=== PATIENT | male | born 1985 | race African-American/Black ===

== ENCOUNTER 2021-05-18 16:50 | Inpatient (IN) ==
[2021-05-18 18:50] LABS: Urine Appearance Clear; Urine Bilirubin Negative (Negative); Urine Blood 1+ (Negative); Urine Color Amber; Urine Glucose Negative (Negative); Urine Ketones Negative (Negative); Urine Nitrite Negative (Negative); Urine Protein Negative (Negative); Urine Specific Gravity 1.012 (1.002-1.030); Urine Urobilinogen Negative (Negative)
[2021-05-18 18:54] LABS: Urine Bacteria Absent (Absent); Urine Red Blood Cell Trace(0-2/hpf) (Absent); Urine Squamous Epithelial Cell Present (Absent); Urine White Blood Cell Trace(0-5/hpf) (Absent)
[2021-05-18 22:48] LABS: ABS Basophils 0.1 10^3/ul (0-0.2); ABS Eosinophils 0.2 10^3/ul (0-0.6); ABS Lymphocytes 2.9 10^3/ul (1.0-4.8); ABS Monocytes 1.2 10^3/ul (0-0.8); ABS Neutrophils 5.8 10^3/ul (1.5-7.7); ABS Nucleated RBC 0.2 10^3/ul; Hematocrit 16 % (42-52); Hemoglobin 5.8 g/dL (14.0-18.0); Mean Corpuscular HGB Conc 36 g/dL (31-36); Mean Corpuscular Hemoglobin 34 pg (27-31); Mean Corpuscular Volume 95 fL (80-94); Mean Platelet Volume 7.1 fL (7.4-10.4); Nucleated Red Blood Cells % 2.3; Platelet Count 432 10^3/uL (150-450); Red Blood Count 1.71 10^6 /uL (4.18-5.48); Red Cell Distribution Width 24 % (10-15); White Blood Count 10.2 10^3/uL (3.5-10.8)
[2021-05-18 22:58] LABS: Albumin 3.7 g/dL (3.2-5.2); Albumin/Globulin Ratio 1.4 (1-3); C Reactive Protein 85.27 mg/L (<8.01); Calcium 8.6 mg/dL (8.6-10.3); Globulin 2.7 g/dL (2-4); Potassium 3.9 mmol/L (3.5-5.0); Total Bilirubin 4.8 mg/dL (0.2-1.0); Total Protein 6.4 g/dL (6.4-8.9); eGFR CKD-EPI 123.1 (>60)
[2021-05-18 23:25] LABS: Polychromasia 2+; Sickle Cells 2+
[2021-05-19] MEDS ORDERED: Ondansetron 4 mg VIAL 2 MG/ML 2 ml VIAL IV ONE (00:07)
[2021-05-19] MEDS ORDERED: Morphine 4 MG/ML VIAL (1 ml) IV ONE (00:07)
[2021-05-19 00:38] LABS: Activated Partial Thrombo Time 26.3 seconds (26.0-38.0); INR 1.24 (0.86-1.15)
[2021-05-19 00:47] LABS: Rapid COVID-19 Molecular Undetected (Undetected)
[2021-05-19 02:16] LABS: Direct Bilirubin 0.7 mg/dL (0.03-0.18)
[2021-05-19] MEDS: Heparin 5000 UNITS/ML 1 mL VIAL SUBCUT SCH ×3 (06:26→21:35)
[2021-05-19] MEDS: HYDROcodone/ACETAMIN 5/325 mg TAB PO PRN ×2 (08:25→14:23)
[2021-05-20] MEDS: HYDROcodone/ACETAMIN 5/325 mg TAB PO PRN (06:10)
[2021-05-20] MEDS: Heparin 5000 UNITS/ML 1 mL VIAL SUBCUT SCH ×2 (06:10→14:34)
[2021-05-20 06:23] LABS: ABS Basophils 0.1 10^3/ul (0-0.2); ABS Eosinophils 0.2 10^3/ul (0-0.6); ABS Lymphocytes 2.8 10^3/ul (1.0-4.8); ABS Monocytes 0.9 10^3/ul (0-0.8); ABS Nucleated RBC 0.3 10^3/ul; Eosinophil % 2.2 %; Hematocrit 22 % (42-52); Hemoglobin 7.6 g/dL (14.0-18.0); Mean Corpuscular HGB Conc 36 g/dL (31-36); Mean Corpuscular Hemoglobin 33 pg (27-31); Mean Corpuscular Volume 94 fL (80-94); Mean Platelet Volume 7.2 fL (7.4-10.4); Nucleated Red Blood Cells % 3.5; Platelet Count 440 10^3/uL (150-450); Red Cell Distribution Width 20 % (10-15); White Blood Count 8.9 10^3/uL (3.5-10.8)
[2021-05-20 06:55] LABS: Albumin 3.5 g/dL (3.2-5.2); Albumin/Globulin Ratio 1.3 (1-3); Calcium 8.4 mg/dL (8.6-10.3); Globulin 2.7 g/dL (2-4); Potassium 4.2 mmol/L (3.5-5.0); Total Bilirubin 3.6 mg/dL (0.2-1.0); Total Protein 6.2 g/dL (6.4-8.9); eGFR CKD-EPI 127.4 (>60)
[2021-05-20] MEDS ORDERED: HYDROcodone/ACETAMIN 5/325 mg TAB PO PRN (11:20)
[2021-05-20] MEDS: diPHENhydraMINE 25 mg TAB PO PRN (20:20)
[2021-05-21] MEDS: Heparin 5000 UNITS/ML 1 mL VIAL SUBCUT SCH ×4 (01:56→21:41)
[2021-05-21] MEDS: diPHENhydraMINE 25 mg TAB PO PRN (03:54)
[2021-05-21 07:16] LABS: ABS Basophils 0.1 10^3/ul (0-0.2); ABS Eosinophils 0.2 10^3/ul (0-0.6); ABS Lymphocytes 1.8 10^3/ul (1.0-4.8); ABS Monocytes 0.9 10^3/ul (0-0.8); ABS Neutrophils 5.7 10^3/ul (1.5-7.7); ABS Nucleated RBC 0.2 10^3/ul; Eosinophil % 2.6 %; Hematocrit 22 % (42-52); Hemoglobin 7.9 g/dL (14.0-18.0); Lymphocyte % 20.6 %; Mean Corpuscular HGB Conc 35 g/dL (31-36); Mean Corpuscular Hemoglobin 33 pg (27-31); Mean Corpuscular Volume 93 fL (80-94); Mean Platelet Volume 7.4 fL (7.4-10.4); Nucleated Red Blood Cells % 2.4; Platelet Count 463 10^3/uL (150-450); Red Blood Count 2.38 10^6 /uL (4.18-5.48); Red Cell Distribution Width 20 % (10-15); White Blood Count 8.7 10^3/uL (3.5-10.8)
[2021-05-21 07:22] LABS: Albumin 3.7 g/dL (3.2-5.2); Albumin/Globulin Ratio 1.2 (1-3); Calcium 8.9 mg/dL (8.6-10.3); Globulin 3.1 g/dL (2-4); Potassium 4.7 mmol/L (3.5-5.0); Total Bilirubin 4.1 mg/dL (0.2-1.0); Total Protein 6.8 g/dL (6.4-8.9); eGFR CKD-EPI 125.5 (>60)
[2021-05-21] MEDS: Senna TAB 8.6 mg TAB PO SCH (21:41)
[2021-05-22] MEDS: Heparin 5000 UNITS/ML 1 mL VIAL SUBCUT SCH ×3 (05:07→22:42)
[2021-05-22] MEDS: diPHENhydraMINE 25 mg TAB PO PRN ×3 (05:14→22:42)
[2021-05-22] MEDS: Polyethylene Glycol 3350 17 GM PACKET PO SCH (10:28)
[2021-05-22] MEDS: Senna TAB 8.6 mg TAB PO SCH (22:42)
[2021-05-23] MEDS: Heparin 5000 UNITS/ML 1 mL VIAL SUBCUT SCH ×3 (05:53→22:12)
[2021-05-23] MEDS: diPHENhydraMINE 25 mg TAB PO PRN ×2 (09:00→22:20)
[2021-05-23] MEDS: Polyethylene Glycol 3350 17 GM PACKET PO SCH (09:03)
[2021-05-23] MEDS: oxyCODONE SR 10 mg TAB PO SCH (13:11)
[2021-05-23] MEDS: Senna TAB 8.6 mg TAB PO SCH (22:58)
[2021-05-24] MEDS: Heparin 5000 UNITS/ML 1 mL VIAL SUBCUT SCH ×3 (06:15→23:01)
[2021-05-24] MEDS: oxyCODONE SR 10 mg TAB PO SCH (08:11)
[2021-05-24] MEDS: Polyethylene Glycol 3350 17 GM PACKET PO SCH (08:19)
[2021-05-24 08:42] LABS: Rapid COVID-19 Molecular Undetected (Undetected)
[2021-05-24] MEDS: diPHENhydraMINE 25 mg TAB PO PRN ×2 (11:52→23:00)
[2021-05-24] MEDS: Senna TAB 8.6 mg TAB PO SCH (23:01)
[2021-05-25] MEDS: Heparin 5000 UNITS/ML 1 mL VIAL SUBCUT SCH ×3 (06:19→21:23)
[2021-05-25] MEDS: oxyCODONE SR 10 mg TAB PO SCH (08:16)
[2021-05-25] MEDS: diPHENhydraMINE 25 mg TAB PO PRN ×2 (08:35→16:12)
[2021-05-25] MEDS: Polyethylene Glycol 3350 17 GM PACKET PO SCH (08:36)
[2021-05-25] MEDS: Senna TAB 8.6 mg TAB PO SCH (21:23)
[2021-05-26] MEDS: diPHENhydraMINE 25 mg TAB PO PRN ×2 (01:43→07:30)
[2021-05-26] MEDS: Heparin 5000 UNITS/ML 1 mL VIAL SUBCUT SCH (05:39)
[2021-05-26] MEDS: Polyethylene Glycol 3350 17 GM PACKET PO SCH ×2 (07:29→07:31)
[2021-05-26] MEDS: oxyCODONE SR 10 mg TAB PO SCH (07:30)
[2021-05-26 07:41] VITALS: BP 122/79
== END 2021-05-26 10:10 | DRG 48 ==
LOC: ED 16:50 → SSU 19:23 → EDHOLD 05-19 00:57 → SUATTDRO 05-19 00:57 → SSU 05-19 05:02
PROVIDERS: ADMIT Hospitalist; ATTEND Internal Medicine